=== PATIENT | female | born 1950 | race Hispanic/Latino ===

== ENCOUNTER 2018-01-26 09:50 | Day surgery (SDC) | payer OTHER, MEDICARE, MEDICAID ==
[2018-01-26] MEDS ORDERED: Midazolam 2 MG/2 ML VIAL ONE ×2 (10:58→11:31)
[2018-01-26] MEDS ORDERED: Lidocaine 2% Inj (20ml) ONE ×2 (10:58→12:29)
[2018-01-26] MEDS ORDERED: Iodixanol 320 MG/ML 200 ML BOTTLE IV ONE ×2 (11:00→12:10)
[2018-01-26] MEDS ORDERED: Iodixanol 320 MG/ML 100 ML BOTTLE IV ONE (11:00)
[2018-01-26] MEDS ORDERED: Iohexol 350mgl/ml 50 ML ONE (11:00)
[2018-01-26] MEDS ORDERED: Eptifibatide 20 mg/10mL Inj IVP ONE ×2 (12:10→12:21)
[2018-01-26] MEDS ORDERED: Morphine 4 mg/ml ISec ONE (12:18)
[2018-01-26] MEDS ORDERED: Sodium Chloride 0.45% 1,000 ML IV SCH (13:00)
[2018-01-26] MEDS ORDERED: Oxycodone/Acetaminophen 5/325 mg Tab PO PRN (13:02)
[2018-01-26 16:41] VITALS: RESP 18; TEMP 98.7
--- NOTE | 2018-01-26 17:37 | CARD ---
APPROVED REPORT EKG Measurement Heart [id number] <Conclusion> Normal sinus rhythm STTW changes c/w ischemia
[2018-01-26 19:48] VITALS: BP 118/81; PULSE 72
--- NOTE | 2018-01-27 09:18 | CARDCATH ---
PROCEDURE DATE: 01/26/2018 PROCEDURES: Percutaneous coronary intervention of the left anterior descending coronary artery and drug eluting stent placement. CLINICAL INDICATIONS: 1. Chest pain. 2. Swt-[id number] myocardial infarction. 3. Coronary artery disease. 4. Hypertension. 5. Hyperlipidemia. 6. Paroxysmal atrial fibrillation. REFERRING PHYSICIAN: Jeronimo Nicole DO. PERFORMING PHYSICIAN: Star James MD. PROCEDURE: After informed consent, the patient was prepped and draped in the usual sterile fashion. 2% lidocaine was given in the right groin for local anesthesia. Using micropuncture technique, 6-[place] sheath was introduced into right common femoral artery. The patient was preloaded with aspirin, Plavix and IV heparin. ACT was maintained about 250 throughout the procedure. XBLAD 3.5 guiding catheter engaged into left main coronary artery. Contrast injected. Left coronary angiogram was done. Mid LAD 80-85% stenotic lesion noted. The LAD threaded with Runthrough Whisper coronary wire. The lesion predilated using the 2.5 x 15 compliant balloon. Later stented with 2.75 x 30 drug eluting stent placement. Excellent final angiographic results with ADI III flow in LAD noted. The patient tolerated the procedure well. Post procedure, Perclose suture deployed in the right groin with excellent hemostasis. The patient will be transferred to telemetry for further observation. Then, the patient will be transferred back to [facility] for further management. Star James MD
== END 2018-01-26 20:28 | disposition short-term general hospital (02) ==
LOC: CANPRESDC → CATH 09:50 → 2RNO 15:05 → CATH 20:28
PROVIDERS: ATTEND Internal Medicine Cardiovascular Disease
DX: I21.4 Non-ST elevation (NSTEMI) myocardial infarction (principal); I25.10 Atherosclerotic heart disease of native coronary artery without angina pectoris; I48.0 Paroxysmal atrial fibrillation; I10 Essential (primary) hypertension; E78.5 Hyperlipidemia, unspecified
CPT/HCPCS: 92920; 93005; 93454; 99152; 99153; C1725 ×2; C1760; C1769 ×3; C1874 ×2; C1887; C1894; C9600; J0360; J1327; J1644 ×2; J2250; J2270; J3010; J7030 ×2; Q9966; Q9967 ×2